=== PATIENT | male | born 1965 | race Caucasian/White ===

== ENCOUNTER 2019-06-25 13:57 | Emergency (ER) | payer BC, OTHER ==
[~2019-06-25] VITALS: Ht 175.3 cm; Wt 65.5 kg
[2019-06-25] MEDS ORDERED: IV NORMAL SALINE 1,000ML 1,000 ML IV ONE (14:15)
--- NOTE | 2019-06-25 14:18 | PHYS DOC ---
Past History Past Medical History: Hypertension Past Surgical History: Knee Replacement Smoking: Cigarettes Alcohol Use: Rarely Adult General Chief Complaint Chief Complaint: SHORTNESS OF BREATH HPI HPI 53-year-old male with significant history of hypertension, who presents for evaluation of a nearly three-week history of URI symptoms. The patient reports initially nonproductive cough, now productive of some yellow-colored sputum as of the last few days or so. Associated with nasal congestion, subjective fevers and chills, fullness of the bilateral sinuses, and insomnia. No known sick contacts, specifically no known contacts with a confirmed novel coronavirus patient. No recent out of country travel. No home medications taken for symptomatic relief, other than Unisom for inability to sleep. No aggravating or alleviating factors. Review of Systems Review of Systems General: No fevers, chills. Reports difficulty sleeping. Eyes: No blurred vision, diplopia. ENT: No sore throat. Reports nasal congestion. CV: No chest pain, edema. Resp: No shortness of breath. Reports productive cough. GI: No abdominal pain, nausea, vomiting. Reports recent loose bowel movements. : No dysuria, hematuria. Neuro: No headache, dizziness, weakness. MSK: No arthralgia, back pain. Skin: No acute rash, lesion. All other systems were reviewed and found to be within normal limits, except as documented in this note. Allergies Allergies Allergies Coded Allergies Type Severity Reaction Last Updated Verified codeine Allergy Unknown 06/25/19 Yes Physical Exam Physical Exam Gen: NAD. Head: NC/AT Eyes: No scleral icterus. No conjunctival injection. ENT: MMM. Posterior OP clear. Neck: Supple. NT. CV: Tachycardic 120 bpm. Peripheral pulses intact. Resp: CTAB. Abd: Soft. NT. ND. MSK: No peripheral cyanosis. No edema. No calf tenderness or asymmetry. Neuro: Awake and alert. Skin: Warm. Dry. Psych: Appropriate mood & affect. EKG EKG EKG performed at 1424. Sinus tachycardia. Heart rate 110. Normal intervals. Nonspecific ST changes. No STEMI. Interpreted by me. Radiology/Procedures Radiology/Procedures [] Impressions: Chest X-Ray: AP upright frontal view of the chest was obtained. The cardiomediastinal silhouette is normal. Lungs are clear. There is no pneumothorax. No pleural effusion is appreciated. No acute bone abnormality. IMPRESSION: No acute cardiopulmonary process. Course & Med Decision Making Course & Med Decision Making Pertinent Labs and Imaging studies reviewed. (See chart for details) In summary, 53M p/w nearly 3 weeks of URI Sx. No CP or SOA. HDS on presentation, other than mild tachycardia improved with IVF. No fever. Labs unrevealing, low lymphs, suspecting viral syndrome. CXR clear. Patient reports Hx frequent "sinus infections". Given duration of Sx, would not be unreasonable to treat with augmentin BID. However, patient advised to self quarantine in light of recent COVID19 pandemic. Will DC home with outpatient FU. Return precautions given. Dragon Disclaimer Dragon Disclaimer This electronic medical record was generated, in whole or in part, using a voice recognition dictation system. Departure Departure: Impression: Primary Impression: Viral syndrome Disposition: HOME, SELF-CARE Condition: STABLE Referrals: PCP,NO (PCP) Patient Instructions: Sinusitis, Yeby-ag-Fnda, Viral Syndrome Scripts Guaifenesin/Dextromethorphan (MUCINEX DM ER 1,200-60 MG TAB) 1 Each Tbmp.12hr 1 TAB PO BID for cough and congestion for 10 Days, #20 TAB 0 Refills Prov: LE,ANGELA H DO 06/25/19 Amoxicillin/Potassium Clav (AUGMENTIN 875-125 TABLET) 1 Each Tablet 1 TAB PO BID for sinusitis for 10 Days, #20 TAB 0 Refills Prov: LE,ANGELA H DO 06/25/19 LE,ANGELA H DO Jun 25, 2019 14:18
--- NOTE | 2019-06-25 14:42 | RAD ---
Examination: CHEST AP ONLY History: Cough Comparison: None. Findings: AP upright frontal view of the chest was obtained. The cardiomediastinal silhouette is normal. Lungs are clear. There is no pneumothorax. No pleural effusion is appreciated. No acute bone abnormality. IMPRESSION: No acute cardiopulmonary process. Electronically signed by: Timothy Acevedo MD (06/25/2019 2:39 PM) [id number]
[2019-06-25 14:46] LABS: CALCIUM 9.7 mg/dL (8.5-10.1); CREATININE 0.8 mg/dL (0.7-1.3); GFR 101.9; POTASSIUM 4.4 mmol/L (3.5-5.1)
[2019-06-25 14:51] LABS: BASO # 0.1 x10^3/uL (0.0-0.2); BASO % 1 % (0-3); EOS # 0.1 x10^3/uL (0.0-0.7); EOS % 1 % (0-3); HEMATOCRIT 45.3 % (39.0-53.0); HEMOGLOBIN 15.5 g/dL (13.0-17.5); LYMPH # 1.4 x10^3/uL (1.0-4.8); LYMPH % 19 % (24-48); MEAN CORPUSCULAR HEMOGLOBIN 32 pg (25-35); MEAN CORPUSCULAR HGB CONC 34 g/dL (31-37); MEAN CORPUSCULAR VOLUME 95 fL (79-100); MONO # 0.7 x10^3/uL (0.0-1.1); MONO % 10 % (0-9); NEUT # 5.1 x10^3uL (1.8-7.7); NEUT % 68 % (31-73); PLATELET COUNT 273 x10^3/uL (140-400); RED BLOOD COUNT 4.78 x10^6/uL (4.30-5.70); RED CELL DISTRIBUTION WIDTH 15.9 % (11.5-14.5); WHITE BLOOD COUNT 7.5 x10^3/uL (4.0-11.0)
[2019-06-25 14:58] VITALS: BP 183/102
[2019-06-25 15:03] LABS: ALBUMIN 4.4 g/dL (3.4-5.0); ALBUMIN/GLOBULIN RATIO 1.3 (1.0-1.7); MAGNESIUM 1.8 mg/dL (1.8-2.4); TOTAL BILIRUBIN 0.4 mg/dL (0.2-1.0); TOTAL PROTEIN 7.7 g/dL (6.4-8.2)
[2019-06-25] MEDS ORDERED: GUAI1TBM10 PO (15:10)
[2019-06-25] MEDS ORDERED: AMOX1TAB61 PO (15:10)
--- NOTE | 2019-06-25 16:15 | EKG ---
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
== END 2019-06-25 15:10 | disposition home or self-care (01) ==
LOC: ER 13:57
DX: B34.9 Viral infection, unspecified (principal); F17.210 Nicotine dependence, cigarettes, uncomplicated; I10 Essential (primary) hypertension; R19.7 Diarrhea, unspecified; Z88.5 Allergy status to narcotic agent
CPT/HCPCS: 36415; 71045; 80053; 83735; 84484; 85025; 93005; 96360; 99285-25; J7030

== ENCOUNTER 2020-03-20 08:24 | Emergency (ER) | payer BC ==
[~2020-03-20] VITALS: Ht 175.3 cm; Wt 79.5 kg
[~2020-03-20 08:24] MED LIST: AMOX1TAB61 PO; GUAI1TBM10 PO
--- NOTE | 2020-03-20 08:36 | PHYS DOC ---
Past History Past Medical History: Hypertension Past Surgical History: Knee Replacement Smoking: Cigarettes Alcohol Use: Occasionally (increased recently) General Adult EDM: Chief Complaint: CHEST PAIN HPI: HPI: Patient is a [age] year old 54-year-old male who has had left-sided chest pain that has been constant for the last 3 days. Patient describes currently a dull pain on the left side of her chest that radiates to the shoulder that is 6 out of 10 in severity. Patient states nothing makes the symptoms better or worse. Patient does state he has had recent stress in his life. Patient describes some paresthesias in his face as well as all 4 extremities. Patient denies any current nausea or vomiting, fever, chills, shortness of breath. Patient denies any dizziness. Pain is described as a dull pain and is not worse with deep br eaths. Patient states he has had increased alcohol intake intake recently Review of Systems: Review of Systems: Constitutional: Denies fever or chills Eyes: Denies change in visual acuity HENT: Denies nasal congestion or sore throat Respiratory: Denies cough or shortness of breath Cardiovascular: Complains of chest pain but no edema GI: Denies abdominal pain, nausea, vomiting, bloody stools or diarrhea : Denies dysuria Musculoskeletal: Denies back pain or joint pain Integument: Denies rash Neurologic: Denies headache, focal weakness but has had some tingling in his face and all 4 extremities. Endocrine: Denies polyuria or polydipsia Lymphatic: Denies swollen glands Psychiatric: Denies depression or anxiety Current Medications: Current Meds: Current Medications Aspirin (Aspirin Chewable) 324 mg 1X ONCE PO Last administered on 03/20/20at 08:45; Start 03/20/20 at 08:45; Stop 03/20/20 at 08:46; Status DC Iohexol (Omnipaque 350 Mg/ml) 100 ml 1X ONCE IV Last administered on 03/20/20at 09:36; Start 03/20/20 at 09:15; Stop 03/20/20 at 09:28; Status DC Active Scripts Active Mucinex Dm Er 1,200-60 Mg Tab (Guaifenesin/Dextromethorphan) 1 Each Tbmp.12hr 1 Tab PO BID 10 Days Augmentin 875-125 Tablet (Amoxicillin/Potassium Clav) 1 Each Tablet 1 Tab PO BID 10 Days Allergies: Allergies: Allergies Coded Allergies Type Severity Reaction Last Updated Verified codeine Allergy Unknown 06/25/19 Yes Physical Exam: PE: Constitutional: Well developed, well nourished, no acute distress, non-toxic appearance. [] HENT: Normocephalic, atraumatic, bilateral external ears normal, no trismus nose normal. [] Eyes: PERRLA, EOMI, conjunctiva normal, no discharge. [] Neck: Normal range of motion, no tenderness, supple, no stridor. [] Cardiovascular:H slightly tachycardic, peripheral pulses intact cap refill is brisk Lungs & Thorax: Bilateral breath sounds clear, no respiratory distress Abdomen: soft, no tenderness, no masses, no pulsatile masses. [] Skin: Warm, dry, no erythema, no rash. [] Back: No tenderness, no CVA tenderness. [] Extremities: No tenderness, no cyanosis, no clubbing, ROM intact, no edema. [] Neurologic: Alert and oriented X 3, normal motor function, normal sensory function, no focal deficits noted. [] Psychologic: Affect normal, judgement normal, mood normal. [] Current Patient Data: Labs: Laboratory Tests Test 03/20/20 08:30 White Blood Count 7.0 x10^3/uL Red Blood Count 4.28 x10^6/uL Hemoglobin 13.8 g/dL Hematocrit 40.4 % Mean Corpuscular Volume 94 fL Mean Corpuscular Hemoglobin 32 pg Mean Corpuscular Hemoglobin Concent 34 g/dL Red Cell Distribution Width 16.2 % Platelet Count 200 x10^3/uL Neutrophils (%) (Auto) 55 % Lymphocytes (%) (Auto) 28 % Monocytes (%) (Auto) 14 % Eosinophils (%) (Auto) 3 % Basophils (%) (Auto) 1 % Neutrophils # (Auto) 3.8 x10^3uL Lymphocytes # (Auto) 1.9 x10^3/uL Monocytes # (Auto) 0.9 x10^3/uL Eosinophils # (Auto) 0.2 x10^3/uL Basophils # (Auto) 0.1 x10^3/uL D-Dimer (Francheska) 2.00 mg/L Sodium Level 132 mmol/L Potassium Level 3.3 mmol/L Chloride Level 92 mmol/L Carbon Dioxide Level 24 mmol/L Anion Gap 16 Blood Urea Nitrogen 26 mg/dL Creatinine 1.4 mg/dL Estimated GFR (Cockcroft-Gault) 53.2 BUN/Creatinine Ratio 19 Glucose Level 131 mg/dL Calcium Level 8.6 mg/dL Total Bilirubin 0.2 mg/dL Aspartate Amino Transf (AST/SGOT) 91 U/L Alanine Aminotransferase (ALT/SGPT) 105 U/L Alkaline Phosphatase 107 U/L Troponin I Quantitative < 0.017 ng/mL Total Protein 7.4 g/dL Albumin 4.0 g/dL Albumin/Globulin Ratio 1.2 Lipase 183 U/L Ethyl Alcohol Level 126 mg/dL Current Medications Medications (Trade) Dose Ordered Sig/Haja Route PRN Reason Start Time Stop Time Status Last Admin Dose Admin Aspirin (Aspirin Chewable) 324 mg 1X ONCE PO 03/20/20 08:45 03/20/20 08:46 DC 03/20/20 08:45 Iohexol (Omnipaque 350 Mg/ml) 100 ml 1X ONCE IV 03/20/20 09:15 03/20/20 09:28 DC 03/20/20 09:36 Vital Signs: Vital Signs Date Time Temp Pulse Resp B/P (MAP) Pulse Ox O2 Delivery O2 Flow Rate FiO2 03/20/20 09:46 98 18 121/75 (90) 96 Room Air 03/20/20 08:35 98.1 EKG: EKG: [] EKG interpreted by ri sinus tachycardia with a rate of 103, normal axis, normal intervals, normal ST segments Radiology/Procedures: Radiology/Procedures: [][address] [address] IMAGING REPORT Signed PATIENT: FRANKIE SAUCEDA ACCOUNT: [id number] : 1965 LOCATION: ER AGE: 54 SEX: M EXAM STATUS: REG ER ORD. PHYSICIAN: BARBER QUEZADA MD REASON: chest pain PROCEDURE: PORTABLE CHEST 1V Examination: XR CHEST 1V History: chest pain / Comparison/Correlation: 06/25/2019 Findings: Portable upright image of the chest was obtained. Heart size and pulmonary vasculature are normal. No infiltrate or effusion. Bony structures are unremarkable. No pneumothorax. Impression: No active disease. Electronically signed by: Timothy Stein MD (03/20/2020 9:03 AM) [id number] DICTATED AND SIGNED BY: TIMOTHY STEIN MD DATE: 03/20/20 09 CC: BARBER QUEZADA MD; ROBB WILLIAM MD ~MTH0 [address] [address] IMAGING REPORT Signed PATIENT: FRANKIE SAUCEDA ACCOUNT: [id number] : 1965 LOCATION: ER AGE: 54 SEX: M EXAM STATUS: REG ER ORD. PHYSICIAN: BARBER QUEZADA MD REASON: CHEST PAIN, ELEVATED D DIMER, R/O PE PROCEDURE: CT ANGIOGRAPHY CHEST Examination: CTA CHEST History: CHEST PAIN, ELEVATED D DIMER, R/O PE / Comparison/Correlation: None Findings: Axial images of the chest were obtained following IV contrast for pulmonary angiography protocol. Axial images were acquired. Sagittal and coronal reformatted images were provided. Opacification of the pulmonary vasculature is suboptimal due to transient introduction of contrast. No central pulmonary arterial thromboembolic disease. Evaluation more distally is somewhat limited. Excellent opacification of the thoracic aorta is present. No thoracic aortic dissection although evaluation may be limited due to motion at the aortic root level. Borderline distention of the aortic root with diameter of up to 4.2 cm e vident at the level of the sinuses of Valsalva. Emphysematous involvement of the upper lung delgado noted. No dominant pulmonary nodule or mass. Nodule at the left major fissure on axial image 74 cm were measuring less than 0.5 cm diameter probably represents a perifissural lymph node or other benign process. Saber-sheath trachea noted. No enlarged thoracic lymph nodes. Marked fatty infiltration of the liver is present. Impression: No central PE identified. Limited exam due to transient interruption of c ontrast. No suspicious infiltrate. There is a left mid thoracic level nodule about the left major fissure. If there are significant risk factors, then interval follow-up in 6 months to assess stability should be considered. Marked fatty infiltration of the liver. Borderline dilated aortic root. Mild emphysematous involvement of the upper lung delgado. PQRS Compliance Statement: One or more of the following individualized dose reduction techniques were utilized for this examination: 1. Automated exposure control 2. Adjustment of the mA and/or kV according to patient size 3. Use of iterative reconstruction technique Electronically signed by: Timothy Stein MD (03/20/2020 10:13 AM) [id number] DICTATED AND SIGNED BY: TIMOTHY STEIN MD DATE: 03/20/20 1000 CC: BARBER QUEZADA MD; ROBB WILLIAM MD ~MTH0 0 Heart Score: HEART Score for Chest Pain: HEART Score for Chest Pain Response (Comments) Value History Slighlty/Non-Suspicious 0 ECG Normal 0 Age >45 - < 65 1 Risk Factors 1 or 2 Risk Factors 1 Troponin < Normal Limit 0 Total 2 Risk Factors: Risk Factors: DM, Current or recent (<one month) smoker, HTN, HLP, family history of CAD, obesity. Risk Scores: Score 0 - 3: 2.5% MACE over next 6 weeks - Discharge Home Score 4 - 6: 20.3% MACE over next 6 weeks - Admit for Clinical Observation Score 7 - 10: 72.7% MACE over next 6 weeks - Early Invasive Strategies Course & Med Decision Making: Course & Med Decision Making Pertinent Labs and Imaging studies reviewed. (See chart for details) [] 54-year-old male presents with a chief complaint of chest pain. Patient has a heart score of 2 with a negative troponin and unremarkable EKG, doubt acute coronary syndrome. Patient's had pain for 3 days constant, if he was having acute coronary syndrome he would have an abnormal EKG or a elevated troponin which he does not. Patient had elevated D-dimer therefore he underwent a CT angiogram which is negative for pulmonary embolism. Patient has a pulmonary nodule which will need follow-up in 6 months, discussed this with him. Patient has paresthesias and chest pain as well as increased alcohol intake. I think the alcohol intake and anxiety may be a large contributing factor to his problems today. Discussed with him decreasing his alcohol intake. Dragon Disclaimer: Dragpeter Disclaimer: This electronic medical record was generated, in whole or in part, using a voice recognition dictation system. Departure Departure: Impression: Primary Impression: Chest pain Additional Impressions: Pulmonary nodule Alcohol intoxication Disposition: 01 DC HOME SELF CARE/HOMELESS Condition: STABLE Referrals: ROBB WILLIAM MD (PCP) 2-3 DAYS Patient Instructions: Alcohol Intoxication, Chest Pain (Nonspecific), Pulmonary Nodule Additional Instructions: EMERGENCY DEPARTMENT GENERAL DISCHARGE INSTRUCTIONS THANK YOU for coming to [facility] Emergency Department (ED) today and trusting us with your care. We trust that you had a positive experience in our Emergency Department. If you wish to speak to the department Management you can contact the emergency department at YOUR FOLLOW UP INSTRUCTIONS ARE FOLLOWS: Do you have a private doctor? If you do not have a private doctor, please ask for a resource list of physicians or clinics that may be able to assist you with follow up care. The Emergency Physician has interpreted your x-rays. The X-ray specialist will also review them. If there is a change in the findings you will be notified in 48 hours when at all possible. A lab test or lab culture may have been done, your results will be reviewed and you will be notified if you need a change in treatment. ADDITIONAL INSTRUCTIONS AND INFORMATION Your care today has been supervised by a physician who is specially trained in emergency care. Many problems require more than one evaluation for a complete diagnosis and treatment. We recommend that you schedule your follow up appointment as recommended to ensure complete treatment of your illness or injury. If you are unable to obtain follow up care and continue to have a problem, or if your condition worsens we recommend that you return to the ED. We are not able to safely determine your condition over the phone nor are we able to give sound medical advice over the phone. For these safety reasons, if you call for medical advice we will ask you to come to the ED for further evaluation If you have any questions regarding these discharge instructions please call the ED at SAFETY INFORMATION In the interest of safety, wellness, and injury prevention; we encourage you to wear your seatbelt, if you smoke; quit smoking, and we encourage your family to use protective helmet for bicycling and other sporting events that present an increased risk for head injury. IF YOUR SYMPTOMS WORSEN OR NEW SYMPTOMS DEVELOP, OR YOU HAVE CONCERNS ABOUT YOUR CONDITION; OR IF YOUR CONDITION WORSENS WHILE YOU ARE WAITING FOR YOUR FOLLOW UP APPOINTMENT; EITHER CONTACT YOUR PRIMARY CARE DOCTOR, THE PHYSICIAN WHOSE NAME AND NUMBER YOU WERE GIVEN, OR RETURN TO THE ED IMMEDIATELY. You have a pulmonary nodule and need follow-up imaging of your chest in 6 months. BARBER QUEZADA MD Mar 20, 2020 08:36
[2020-03-20] MEDS ORDERED: ASPIRIN CHEWABLE 81 MG TABLET. PO ONE (08:45)
[2020-03-20 08:46] LABS: BASO # 0.1 x10^3/uL (0.0-0.2); BASO % 1 % (0-3); EOS # 0.2 x10^3/uL (0.0-0.7); EOS % 3 % (0-3); HEMATOCRIT 40.4 % (39.0-53.0); HEMOGLOBIN 13.8 g/dL (13.0-17.5); LYMPH # 1.9 x10^3/uL (1.0-4.8); LYMPH % 28 % (24-48); MEAN CORPUSCULAR HEMOGLOBIN 32 pg (25-35); MEAN CORPUSCULAR HGB CONC 34 g/dL (31-37); MEAN CORPUSCULAR VOLUME 94 fL (79-100); MONO # 0.9 x10^3/uL (0.0-1.1); MONO % 14 % (0-9); NEUT # 3.8 x10^3uL (1.8-7.7); NEUT % 55 % (31-73); PLATELET COUNT 200 x10^3/uL (140-400); RED BLOOD COUNT 4.28 x10^6/uL (4.30-5.70); RED CELL DISTRIBUTION WIDTH 16.2 % (11.5-14.5)
[2020-03-20 08:57] LABS: CALCIUM 8.6 mg/dL (8.5-10.1); CREATININE 1.4 mg/dL (0.7-1.3); GFR 53.2; POTASSIUM 3.3 mmol/L (3.5-5.1)
[2020-03-20 09:02] LABS: ALBUMIN/GLOBULIN RATIO 1.2 (1.0-1.7); TOTAL BILIRUBIN 0.2 mg/dL (0.2-1.0); TOTAL PROTEIN 7.4 g/dL (6.4-8.2)
--- NOTE | 2020-03-20 09:05 | RAD ---
Examination: XR CHEST 1V History: chest pain / Comparison/Correlation: 06/25/2019 Findings: Portable upright image of the chest was obtained. Heart size and pulmonary vasculature are normal. No infiltrate or effusion. Bony structures are unremarkable. No pneumothorax. Impression: No active disease. Electronically signed by: Timothy Acevedo MD (03/20/2020 9:03 AM) [id number]
[2020-03-20] MEDS ORDERED: IOHEXOL 350 MG/ML 100 ML VIAL. IV ONE (09:15)
--- NOTE | 2020-03-20 10:16 | RAD ---
ADDENDUM #1 Addendum: Maximum intensity projection images provided. Electronically signed by: Timothy Acevedo MD (03/20/2020 12:32 PM) [id number] ORIGINAL REPORT Examination: CTA CHEST History: CHEST PAIN, ELEVATED D DIMER, R/O PE / Comparison/Correlation: None Findings: Axial images of the chest were obtained following IV contrast for pulmonary angiography pro tocol. Axial images were acquired. Sagittal and coronal reformatted images were provided. Opacification of the pulmonary vasculature is suboptimal due to transient introduction of contrast. N o central pulmonary arterial thromboembolic disease. Evaluation more distally is somewhat limited. Excellent opacification of the thoracic aorta is present. No thoracic aortic dissection although eval uation may be limited due to motion at the aortic root level. Borderline distention of the aortic espinoza t with diameter of up to 4.2 cm evident at the level of the sinuses of Valsalva. Emphysematous involvement of the upper lung delgado noted. No dominant pulmonary nodule or mass. Nodul e at the left major fissure on axial image 74 cm were measuring less than 0.5 cm diameter probably re presents a perifissural lymph node or other benign process. Saber-sheath trachea noted. No enlarged t horacic lymph nodes. Marked fatty infiltration of the liver is present. Impression: No central PE identified. Limited exam due to transient interruption of contrast. No suspicious infiltrate. There is a left mid thoracic level nodule about the left major fissure. If there are significant risk factors, then interval follow-up in 6 months to assess stability should be considered. Marked fatty infiltration of the liver. Borderline dilated aortic root. Mild emphysematous involvement of the upper lung delgado. PQRS Compliance Statement: One or more of the following individualized dose reduction techniques were utilized for this examinat ion: 1. Automated exposure control 2. Adjustment of the mA and/or kV according to patient size 3. Use of iterative reconstruction technique Electronically signed by: Timothy Acevedo MD (03/20/2020 10:13 AM) [id number]
[2020-03-20 10:41] VITALS: BP 121/75
--- NOTE | 2020-03-20 14:39 | EKG ---
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
== END 2020-03-20 10:40 | disposition home or self-care (01) ==
LOC: ER 08:24
DX: F10.229 Alcohol dependence with intoxication, unspecified (principal); R91.1 Solitary pulmonary nodule; R07.89 Other chest pain; R20.0 Anesthesia of skin; I10 Essential (primary) hypertension; F17.210 Nicotine dependence, cigarettes, uncomplicated; Z98.890 Other specified postprocedural states; Z88.5 Allergy status to narcotic agent
CPT/HCPCS: 36415; 71045; 71275; 80053; 83690; 84484; 85025; 85379; 93005; 99285; G0480; Q9967